=== PATIENT | male | born 1960 | race Caucasian/White ===

== ENCOUNTER → 2017-07-31 07:53 | Outpatient (CLI) | payer OTHER, MEDICAID, SELFPAY ==
[2017-07-31 08:47] LABS: Magnesium 2.1 mg/dL (1.6-2.3)
[2017-07-31 08:50] LABS: High Sensitivity CRP - Cardiac 0.3 mg/L (1.0-3.0)
[2017-07-31 08:54] LABS: Erythrocyte Sedimentation Rate 1 MM/HR (0-15)
[2017-07-31 09:36] LABS: Vitamin B12 387 pg/mL (239-931)
[2017-08-03 11:06] LABS: Vitamin B6 47.9 ng/mL (2.1-21.7)
[2017-08-03 22:02] LABS: ANA Screen POSITIVE (Negative); DNA Antibody Crithidia IFA NEGATIVE (Negative); Rheumatoid Factor <14 IU/mL; Sjogren Antiboday SS-A <1.0 NEG AI (<1.0 NEGATIVE); Sjogren Antiboday SS-B <1.0 NEG AI (<1.0 NEGATIVE); Sm Antibody <1.0 NEG AI (<1.0 NEGATIVE); Sm/RNP Antibody <1.0 NEG AI (<1.0 NEGATIVE)
== END ==
PROVIDERS: Family Provider Physician Assistant; PCP Physician Assistant; Visit Provider Physician Assistant
DX: R20.2 Paresthesia of skin (principal); M79.601 Pain in right arm; M79.602 Pain in left arm; I25.10 Atherosclerotic heart disease of native coronary artery without angina pectoris
CPT/HCPCS: 36415; 82607; 83735; 84207; 85651; 86038; 86140; 86430

== ENCOUNTER → 2018-08-01 11:50 | Outpatient (CLI) | payer OTHER, MEDICAID, SELFPAY ==
[2018-08-01 12:29] LABS: Alanine Aminotransferase 17 IU/L (21-72); Albumin 4.6 g/dL (3.5-5.0); Albumin Globulin Ratio 1.6 (1.0-2.8); Alkaline Phosphatase 41 U/L (38-126); Aspartate Aminotransferase 32 IU/L (17-59); Bilirubin Total 1.4 mg/dL (0.2-1.3); Blood Urea Nitrogen 27 mg/dL (9-20); Carbon Dioxide 31 mmol/L (22-32); Chloride 101 mmol/L (98-107); Cholesterol 191 mg/dL (140-199); Estimated Glomerular Filt Rate > 60.0 mL/min (>60); Globulin 2.9 g/dL (1.7-4.1); Glucose 98 mg/dL (70-100); HDL Cholesterol 86 mg/dL (40-60); HEMOLYSIS < 15 (0-50); LDL Cholesterol Calculated 52 mg/dL (<100); Potassium 4.9 mmol/L (3.4-5.1); Sodium 140 mmol/L (137-145); Total Protein 7.5 g/dL (6.3-8.2); Triglycerides 265 mg/dL (35-150)
[2018-08-01 12:59] LABS: Prostate Specific Antigen Scrn 0.978 ng/mL (0.1-4.0)
[2018-08-01 15:30] LABS: Vitamin D 25 Hydroxy (D3) 30.8 ng/mL (30.0-100.0)
== END ==
PROVIDERS: PCP Student in an Organized Health Care Education/Training Program; Visit Provider Student in an Organized Health Care Education/Training Program
DX: E55.9 Vitamin D deficiency, unspecified (principal); I10 Essential (primary) hypertension; E78.5 Hyperlipidemia, unspecified; Z79.899 Other long term (current) drug therapy; Z12.5 Encounter for screening for malignant neoplasm of prostate
CPT/HCPCS: 36415; 80053; 80061; 82306; G0103

== ENCOUNTER → 2019-11-13 14:28 | Outpatient (CLI) | payer OTHER, MEDICAID, SELFPAY ==
[2019-11-13 15:47] LABS: HEMOLYSIS < 15 (0-50)
[2019-11-13 16:01] LABS: BUN Creatinine Ratio 17.4 (6-22); Blood Urea Nitrogen 23 mg/dL (9-20); Calcium 9.9 mg/dL (8.4-10.2); Carbon Dioxide 30 mmol/L (22-32); Chloride 98 mmol/L (98-107); Estimated Glomerular Filt Rate 55.7 mL/min (>60); Glucose 99 mg/dL (70-100); Potassium 4.8 mmol/L (3.4-5.1); Sodium 137 mmol/L (137-145)
== END ==
PROVIDERS: PCP Student in an Organized Health Care Education/Training Program; Referring Provider Student in an Organized Health Care Education/Training Program; Visit Provider Student in an Organized Health Care Education/Training Program
DX: I10 Essential (primary) hypertension (principal)
CPT/HCPCS: 36415; 80048; 84153

== ENCOUNTER → 2019-12-04 10:49 | Outpatient (CLI) | payer OTHER, MEDICAID, SELFPAY ==
[2019-12-04 12:02] LABS: BUN Creatinine Ratio 18.2 (6-22); Blood Urea Nitrogen 20 mg/dL (9-20); Estimated Glomerular Filt Rate > 60.0 mL/min (>60)
== END ==
PROVIDERS: PCP Student in an Organized Health Care Education/Training Program; Referring Provider Student in an Organized Health Care Education/Training Program; Visit Provider Student in an Organized Health Care Education/Training Program
DX: N17.9 Acute kidney failure, unspecified (principal)
CPT/HCPCS: 36415; 82565; 84520

== ENCOUNTER → 2020-03-22 09:44 | Outpatient (CLI) | payer OTHER, MEDICAID, SELFPAY ==
[2020-03-22 11:55] LABS: COVID19 -Nasal RAPID Negative (Negative)
== END ==
PROVIDERS: PCP Student in an Organized Health Care Education/Training Program; Visit Provider Specialist
DX: Z20.822 Contact with and (suspected) exposure to COVID-19 (principal)
CPT/HCPCS: 87635; C9803

== ENCOUNTER 2020-03-23 08:30 | Day surgery (SDC) | payer OTHER, MEDICAID, SELFPAY ==
--- NOTE | 2020-03-23 | PATH_ITS ---
[facility] Accession Number: [id number] . 01 Material submitted: . PART A: colon - ASCENDING COLON PART B: colon - TRANSVERSE COLON PART C: colon - COLON POLYP BIOPSY AT 55CM PART D: colon - COLON POLYP BIOPSY AT 15CM . 02 Diagnosis: A. Ascending Colon, Biopsy: Tubular adenoma. . B. Transverse Colon, Biopsy: Fragments of tubular adenoma. . C. Colon Polyp at 55 cm, Biopsy: Hyperplastic polyp. . D. Colon Polyp at 15 cm, Biopsy: Tubular adenoma. [facility] 03/25/2020 1623 Local . 02 Electronically signed: . Marc Clark MD, PhD, Pathologist NPI- [id number] . 01 Gross description: . A. The specimen is received in formalin, labeled ascending colon and consists of four mosqueda-pink fragments of soft tissue measuring 0.8 x 0.6 x 0.2 cm in aggregate. The specimen is entirely submitted in cassette A1. B. The specimen is received in formalin, labeled transverse colon and consists of multiple mosqueda-pink fragments of soft tissue measuring 1.2 x 1.0 x 0.3 cm in aggregate. The specimen is entirely submitted in cassette B1. C. The specimen is received in formalin, labeled colon polyps at 55 cm and consists of two mosqueda-pink fragments of soft tissue measuring 0.5 x 0.4 x 0.3 cm in aggregate. The specimen is entirely submitted in cassette C1. D. The specimen is received in formalin, labeled colon polyp at 15 cm and consists of three mosqueda-pink fragments of soft tissue measuring 0.7 x 0.6 x 0.3 cm in aggregate. The specimen is entirely submitted in cassette D1. ([id number]) /MRV 03/24/2020 1237 Local . 02 Pathologist provided ICD-10: D12.2, D12.3, D12.6 . 02 CPT . 162544, 524533, 309956, [id number] Performed at: 01 [facility] [address] [id number] MD Timothy Carter MD Phone: [phone] Performed at: 02 [facility] [address] [place] [id number] MD Doreen Morton MD Phone: [phone]
[2020-03-23] MEDS: LACTATED RINGERS 1,000 ML 200 ML IV (08:47)
[2020-03-23 08:55] VITALS: BP 145/97; PULSE 100; RESP 20; TEMP 36.2; O2SAT 97; BMI 23.3
--- NOTE | 2020-03-23 10:13 | PM.HP.1 ---
History of Present Illness History of Present Illness Date Patient Seen: 03/23/20 Time Patient Seen: 10:00 Chief complaint: SDC Narrative: The patient is here for screening colonoscopy. This is his 1st exam. No family history of colon cancer. Patient History Medical History (Updated 03/23/20 @ 10:14 by Aries Owens MD) Coronary artery disease (~03/2015) Coronary artery disease Essential hypertension Fractures (Unknown) Hyperlipidemia (~03/2015) Hyperlipidemia Hypertension (~03/2015) Knee pain, right (~2017) Skin cancer Unstable angina (~03/2015) Vitamin D deficiency (~2015) Surgical History History of coronary artery stent placement (~03/2015) Family & Social History Family History Father No problems noted. Mother No problems noted. Social History: household members spouse Tobacco & Substance use: Smoking Status Never smoker alcohol intake current alcohol intake frequency 0-2 drinks per day Substance Use Type does not use Meds Home Medications and Allergies Home Medications Medication Instructions Recorded Confirmed Type aspirin 81 mg chewable tablet 81 mg PO DAILY 07/10/18 03/23/20 History atorvastatin 80 mg tablet 80 mg PO HS #90 tab 11/12/19 03/23/20 Rx lisinopril 20 1 tab PO DAILY #90 tab 12/10/19 03/23/20 Rx mg-hydrochlorothiazide 12.5 mg tablet Allergies Allergy/AdvReac Type Severity Reaction Status Date / Time No Known Drug Allergies Allergy Verified 03/23/20 08:47 Review of Systems Review of Systems Narrative: No symptoms related to his heart since his stents were placed. ROS: Yes All systems reviewed with the patient and are negative except as otherwise documented Exam Vital Signs (past 8 hours): - 03/23/20 08:55 Temperature 97.1 F L Pulse Rate 100 H Respiratory Rate 20 Blood Pressure 145/97 H Pulse Oximetry 97 Oxygen Delivery Method Room Air Narrative Exam Narrative: Pleasant cooperative patient no apparent distress. Lungs are clear to auscultation. No rales or rhonchi. Heart regular rate and rhythm no murmur gallop. Abdomen is soft nontender without mass. No obvious hernias. Patient is alert and oriented x3. Assessment & Plan Assessment & Plan narrative: The patient for a screening colonoscopy. I have discussed the procedure with them. Risks of bleeding, perforation which would necessitate major operation, failure to find remove all lesions, the potential tattoo were all discussed. All questions were answered. They wished to proceed.
--- NOTE | 2020-03-23 10:15 | PM.PREOP ---
Pre-operative Note COVID-19 COVID-19 status: Negative Result date/Date tested (Pos, Neg/Pending): 03/22/20 Interval Note History & Physical reviewed/Exam performed by Physician: Yes Changes to H&P: No ASA Class (for procedural sedation): II
[2020-03-23] MEDS: fentaNYL 250 MCG/5 ML INJ IV (10:19)
[2020-03-23] MEDS: MIDAZOLAM 5 MG/5 ML VIAL IV (10:19)
--- NOTE | 2020-03-23 10:52 | PM.OP.ENDO ---
Operative Date/Time/Diagnoses Date of procedure: 03/23/20 Time of procedure: 10:52 Pre-op diagnosis: Screening colonoscopy. Patient is 60. This is his 1st exam. Post-op diagnosis: same (Multiple small polyps. Internal hemorrhoids.) Procedure & Clinicians Study performed: Colonoscopy with cold biopsy Same procedure as scheduled: Yes Indications: Screening Surgeon: Aries Owens Procedure Notes SCOAP/Timeout: Performed Procedure in detail: The patient was placed in the left lateral decubitus position and underwent IV sedation directed by the surgeon consisting of fentanyl and Versed. Digital exam was unremarkable. That portion of his prostate I could feel was normal in size and without mass.. The scope was inserted and advanced through the rectum into the sigmoid, descending, transverse, and ascending colon. No lesions were seen on the way in.. The cecum was reached identified by the ileocecal valve and the appendiceal opening. The ileocecal valve was briefly cannulated. The terminal ileum was normal in appearance. The scope was gradually brought out. Polyps were found at the ascending colon, transverse colon, 55 cm and 15 cm from the anal verge. All appeared to be removed. All were under a cm. . The scope ultimately was retroflexed in the rectum. The appearance was remarkable for internal hemorrhoids without ulceration.. The scope was removed and the patient tolerated the procedure well. The prep was very good. Scope withdrawal time: 7 minutes(14 total) Sedation minutes: 29 Findings: internal hemorrhoids and polyp (Multiple. All small.) Specimen(s): other (Polyps) Complications: none Post-procedure Recommendations: Colonscopy in 5 years Follow up: as needed Disposition: PACU
[2020-03-23 10:54] VITALS: BP 125/83; PULSE 90; RESP 22; TEMP 36.9; O2SAT 96
[2020-03-23 10:58] VITALS: BP 130/96; PULSE 90; RESP 18; O2SAT 96
[2020-03-23 11:03] VITALS: BP 118/92; PULSE 85; RESP 16; O2SAT 96
[2020-03-23 11:08] VITALS: BP 131/89; PULSE 79; RESP 22; TEMP 36.6; O2SAT 96
[2020-03-23 11:14] VITALS: BP 138/90; PULSE 81; RESP 16; TEMP 36.9; O2SAT 97
== END 2020-03-23 11:29 | disposition home or self-care (01) ==
PROVIDERS: PCP Student in an Organized Health Care Education/Training Program; Referring Provider Specialist; Visit Provider Specialist
PROC: 0DJD8ZZ Inspection of Lower Intestinal Tract, Via Natural or Artificial Opening Endoscopic (ICD-10-PCS; CPT 45378; principal; 2020-03-23 09:30)
DX: Z12.11 Encounter for screening for malignant neoplasm of colon (principal); I25.10 Atherosclerotic heart disease of native coronary artery without angina pectoris; I10 Essential (primary) hypertension; E78.5 Hyperlipidemia, unspecified; K64.8 Other hemorrhoids; D12.2 Benign neoplasm of ascending colon; D12.3 Benign neoplasm of transverse colon; D12.6 Benign neoplasm of colon, unspecified
CPT/HCPCS: 45380; 99152; 99153; J2250; J3010

== ENCOUNTER → 2020-04-15 11:50 | Outpatient (CLI) | payer OTHER, MEDICAID, SELFPAY ==
[2020-04-15 13:26] LABS: BUN Creatinine Ratio 16.4 (6-22); Blood Urea Nitrogen 18 mg/dL (9-20); Calcium 9.9 mg/dL (8.4-10.2); Carbon Dioxide 36 mmol/L (22-32); Chloride 99 mmol/L (98-107); Estimated Glomerular Filt Rate > 60.0 mL/min (>60); Glucose 99 mg/dL (70-100); HEMOLYSIS < 15 (0-50); Potassium 4.2 mmol/L (3.4-5.1); Sodium 138 mmol/L (137-145)
[2020-04-15 13:46] LABS: TSH w/ Reflex to FT4 1.85 uIU/mL (0.47-4.68)
[2020-04-15 13:53] LABS: Prostate Specific Antigen Scrn 0.987 ng/mL (0.1-4.0)
[2020-04-15 14:12] LABS: Vitamin B12 344 pg/mL (239-931)
== END ==
PROVIDERS: PCP Student in an Organized Health Care Education/Training Program; Referring Provider Student in an Organized Health Care Education/Training Program; Visit Provider Student in an Organized Health Care Education/Training Program
DX: Z12.5 Encounter for screening for malignant neoplasm of prostate (principal); G62.9 Polyneuropathy, unspecified; R42 Dizziness and giddiness; I10 Essential (primary) hypertension
CPT/HCPCS: 36415; 80048; 82607; 84443; G0103

== ENCOUNTER 2020-04-28 10:36 | Outpatient (RCR) | payer OTHER, MEDICAID, SELFPAY ==
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
--- NOTE | 2020-04-28 11:29 | PT.OPPOC ---
Physical, Occupational & Speech Therapy At [facility] Current Diagnoses Benign paroxysmal vertigo, unspecified ear (04/28/20) Visit Care Team Role Provider Type Geovany Masters MD Attending Provider Physician Primary Care Provider Referring Provider Specialty: Internal Medicine Address: [address] [place] [address], [address], [address] Email: [email or web address] Plan Of Care PT-OP-T Assessment and Plan Start: 04/28/20 07:38 Freq: Status: Active Protocol: Document 04/28/20 11:00 AMB (Rec: 05/05/20 11:18 AMB [email or web address]) Physical Therapy Assessment Rehab Potential Rehabilitation Potential Fair Evaluation Complexity Number of Personal Factors/Comorbidities 1-2 Number of Body Systems Impaired 1-2 Clinical Presentation at Evaluation Evolving Impairments Impairments Balance,Functional Activities Goals One Impairment Dysequilibrium Short Term Goal (STG) Shemar will be able to work on ladders without the feeling of losing his balance backwards. STG Duration 8 weeks Assessment Summary Assessment Shemar attended physical therapy with the hope that we would be able to cure his dysequilibrium in just a few minutes. Unfortunately all testing for BPPV was negative, and he specifically denies spinning dizziness. From the testing we would want to work more on cervicogenic dizziness vs post-concussive dizziness. Unfortunately both of these diagnoses would take multiple appointments to make significant change. The patient is quite busy and does not want to commit to coming to physical therapy on a regular basis, so encouraged him to discuss his dysequilibrium with his chiropractor who is already working on his neck. We will keep his case open here for a month if he decides he would like to return to physical therapy, but after that time we will close his case, and he would be welcome to return at a time when he can come to PT on a regular basis. Physical Therapy Plan Frequency and Duration Frequency of Treatment 1x/Week Duration of Treatment 8 weeks Plan of Care Start Date 04/28/20 Plan of Care End Date 06/23/20 Therapeutic Interventions Therapeutic Interventions Balance Training,Home Exercise Program,Manual Therapy, Neuromuscular Re-education, Self-Care/Home Management, Therapeutic Activities, Therapeutic Exercises, Vestibular Rehabilitation Modalities Traction- Mechanical Next Visit Focus/Plan Next Visit Plan Pt on hold since he doesn't want to schedule more at this time, will hold his account open for a month, then discharge if he does not want to schedule within that time frame. Plan of Care Dates Plan of Care Start Date 04/28/20 Plan of Care End Date 06/23/20 Electronically Signed by: Mindy Hamm, PT 05/05/20 6080 Please Sign and Return: I have reviewed this Plan of Care and certify that the skilled therapy services above are required to meet the patient?s needs. Physician Signature Date Printed Name and Credentials Clinical Instructor Signature Printed Name and Credentials
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
== END 2020-07-02 09:38 | disposition home or self-care (01) ==
LOC: PHYS 10:36
PROVIDERS: PCP Student in an Organized Health Care Education/Training Program; Referring Provider Student in an Organized Health Care Education/Training Program; Visit Provider Student in an Organized Health Care Education/Training Program
DX: H81.10 Benign paroxysmal vertigo, unspecified ear (principal)
CPT/HCPCS: 97161

== ENCOUNTER → 2020-12-14 12:03 | Outpatient (CLI) | payer OTHER, MEDICAID, SELFPAY ==
--- NOTE | 2020-12-14 12:05 | DI.RAD.S_ITS ---
PROCEDURE: XR CERVICAL SPINE 2V OR 3V INDICATIONS: Acute on chronic neck injury TECHNIQUE: 3 view(s) of the cervical spine were acquired. COMPARISON: None. FINDINGS: Bones: No fractures or dislocations to the T1 level. The lateral masses of C1 appear intact on the odontoid view. No suspicious bony lesions. Disc space narrowing and facet sclerosis noted in the mid cervical spine. Grade 1 anterior spondylolisthesis at C2-3 present. Soft tissues: No prevertebral soft tissue swelling. IMPRESSION: Degenerative disc disease and arthropathy in the mid cervical spine associated with grade 1 anterior spondylolisthesis C2-3. Approved by: Addy Alvarado M.D. on 12/14/2020 at 14:19
--- NOTE | 2020-12-14 12:05 | DI.RAD.S_ITS ---
PROCEDURE: XR SHOULDER LT MIN 2V INDICATIONS: Left shoulder injury TECHNIQUE: 3 views of the shoulder were acquired. COMPARISON: None. FINDINGS: Bones: No fractures or dislocations. No suspicious bony lesions. Visualized ribs appear intact. Soft tissues: No suspicious soft tissue calcifications. IMPRESSION: Unremarkable left shoulder radiographs Approved by: Addy Alvarado M.D. on 12/14/2020 at 14:20
== END ==
PROVIDERS: PCP Student in an Organized Health Care Education/Training Program; Referring Provider Student in an Organized Health Care Education/Training Program; Visit Provider Student in an Organized Health Care Education/Training Program
DX: S49.92XA Unspecified injury of left shoulder and upper arm, initial encounter (principal); M50.30 Other cervical disc degeneration, unspecified cervical region; M47.812 Spondylosis without myelopathy or radiculopathy, cervical region; M43.12 Spondylolisthesis, cervical region; X58.XXXA Exposure to other specified factors, initial encounter
CPT/HCPCS: 72040; 73030

== ENCOUNTER 2021-10-10 08:15 | Outpatient (RCR) | payer OTHER, MEDICAID, SELFPAY ==
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
--- NOTE | 2021-09-09 21:11 | PT.OPPOC ---
Physical, Occupational & Speech Therapy At [facility] Current Diagnoses Cervicalgia (09/09/21) Visit Care Team Role Provider Type Geovany Masters MD Attending Provider Physician Family Provider Primary Care Provider Referring Provider Specialty: Internal Medicine Address: [address] [place] [address], [facility] [address], [place], [address] Email: [email or web address] Plan Of Care PT-OP-T Assessment and Plan Start: 09/08/21 20:03 Freq: Status: Active Protocol: Document 09/09/21 08:15 AMB (Rec: 09/11/21 21:09 AMB [id number]) Physical Therapy Assessment Rehab Potential Rehabilitation Potential Good Evaluation Complexity Number of Personal Factors/Comorbidities 0 Number of Body Systems Impaired 4 or More Clinical Presentation at Evaluation Stable Impairments Impairments Activity Tolerance,Functional Activities,Posture,ROM,Soft Tissue Mobility Goals Three Impairment Lifting Short Term Goal (STG) Shemar will lift 20 pounds with good body mechanics from the floor to waist height without an increase in his baseline pain. STG Duration 4 weeks Plisse Machine Operator Goal (LTG) Shemar will lift 30 pounds to shoulder height without an increase in pain. LTG Duration 8 weeks Two Impairment Pain Short Term Goal (STG) Shemar will decrease his pain to 6/10 or less at baseline. STG Duration 4 weeks Plisse Machine Operator Goal (LTG) Shemar will work at a desk for one hour with pain of 5/10 or less. LTG Duration 8 weeks One Impairment ROM Short Term Goal (STG) Shemar will improve his right rotation to 60 degrees or more . STG Duration 4 weeks Assessment Summary Assessment Shemar attends physical therapy with acute exacerbation of chronic neck pain that has significantly worsened to the point it is now very difficult for him to work. His medical record does indicate L shoulder pain and possible L carpal tunnel syndrome, but he specifically denies radiating symptoms at this time. His pain is in the posterior cervical spine, and he does have known Gr 1 spondylolisthesis. He did have decreased right cervical rotation and significant forward head posture, but fortunately his strength was WNL. He will benefit from physical therapy to help him manage his pain symptoms so that he can return to work/ activity with less pain. Physical Therapy Plan Frequency and Duration Frequency of Treatment 2x/Week Duration of Treatment 8 weeks Plan of Care Start Date 09/09/21 Plan of Care End Date 11/10/21 Therapeutic Interventions Therapeutic Interventions Home Exercise Program,Joint Mobilizations,Manual Therapy, Neuromuscular Re-education, Self-Care/Home Management, Therapeutic Activities, Therapeutic Exercises Modalities Cold Pack/Ice Massage,Electric Stimulation,Hot Packs, Traction- Mechanical Next Visit Focus/Plan Next Note Type Treatment Note Next Visit Plan review vish quiroz, tanner consider traction, TENS, reduce muscle spasm, educate in body mechanics/posture Plan of Care Dates Plan of Care Start Date 09/09/21 Plan of Care End Date 11/10/21 Electronically Signed by: Mindy Hamm, PT 09/11/21 [id number] If you are in agreement with this Plan of Care, please return a signed and dated copy. I have reviewed this Plan of Care and certify that the skilled therapy services above are required to meet the patient?s needs. Physician Signature Date Printed Name and Credentials Clinical Instructor Signature Printed Name and Credentials
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
== END 2022-02-15 13:43 | disposition home or self-care (01) ==
LOC: PHYS 08:15
PROVIDERS: Family Provider Student in an Organized Health Care Education/Training Program; PCP Student in an Organized Health Care Education/Training Program; Referring Provider Student in an Organized Health Care Education/Training Program; Visit Provider Student in an Organized Health Care Education/Training Program
DX: M54.2 Cervicalgia (principal)
CPT/HCPCS: 97110; 97140; 97161; 97530; 97535

== ENCOUNTER → 2021-11-22 08:39 | Outpatient (CLI) | payer OTHER, MEDICAID, SELFPAY ==
--- NOTE | 2021-11-22 08:39 | DI.MRI.S_ITS ---
PROCEDURE: MR CERVICAL SPINE WO CON INDICATIONS: Cervical radiculopathy TECHNIQUE: Noncontrast sagittal T1 spin echo and T2 fast spin echo, sagittal STIR, foraminal oblique sagittal T2 fast spin echo, and axial gradient echo or T2 fast spin echo through the cervical spine. COMPARISON: None. FINDINGS: Degenerative anterolisthesis of C7 on T1 measuring 3 mm. No significant listhesis otherwise. There is straightening of the usual cervical lordosis from C2 through C5. Vertebral body heights maintained. No suspicious focal marrow signal abnormality. Modic type 1 and 3 degenerative endplate change from C3-C4 through C6-C7. Normal morphology and signal intensity of the cervical cord. There is no syrinx. Regional prevertebral and paraspinous soft tissues demonstrate acute finding. C2-C3: No spinal canal stenosis. Severe left and mild right neural foraminal narrowing. C3-C4: Mild spinal canal stenosis due to posterior disc-osteophyte complex. Moderate bilateral neural foraminal stenosis due to facet and uncovertebral hypertrophy. C4-C5: Mild spinal canal stenosis due to posterior disc osteophyte complex. Severe neural foraminal narrowing bilaterally due to facet and uncovertebral hypertrophy. C5-C6: No spinal canal stenosis. Moderate bilateral neural foraminal narrowing due to facet and uncovertebral hypertrophy. C6-C7: No spinal canal stenosis. Moderate bilateral neural foraminal narrowing to facet and uncovertebral hypertrophy. C7-T1: No spinal canal or neural foraminal stenosis. IMPRESSION: Varying degrees of neural foraminal narrowing up to severe as detailed above. Mild spinal canal stenosis fro at C3-C4 and C4-C5. Dictated by: Reinier Garland M.D. on 11/23/2021 at 10:45 Approved by: Reinier Garland M.D. on 11/23/2021 at 10:51
== END ==
PROVIDERS: Family Provider Student in an Organized Health Care Education/Training Program; PCP Student in an Organized Health Care Education/Training Program; Referring Provider Student in an Organized Health Care Education/Training Program; Visit Provider Student in an Organized Health Care Education/Training Program
DX: M54.12 Radiculopathy, cervical region (principal); M54.2 Cervicalgia; M48.02 Spinal stenosis, cervical region
CPT/HCPCS: 72141

== ENCOUNTER → 2021-11-25 09:47 | Outpatient (CLI) | payer OTHER, MEDICAID, SELFPAY ==
[2021-11-25 12:14] LABS: BUN Creatinine Ratio 19.5 (6-22); Blood Urea Nitrogen 24 mg/dL (9-20); Calcium 9.2 mg/dL (8.4-10.2); Carbon Dioxide 30 mmol/L (22-32); Chloride 98 mmol/L (98-107); Estimated Glomerular Filt Rate > 60 mL/min (>60); Glucose 100 mg/dL (80-110); HEMOLYSIS < 15 (0-50); Potassium 4.1 mmol/L (3.4-5.1); Sodium 137 mmol/L (137-145)
== END ==
PROVIDERS: Family Provider Student in an Organized Health Care Education/Training Program; PCP Student in an Organized Health Care Education/Training Program; Referring Provider Student in an Organized Health Care Education/Training Program; Visit Provider Student in an Organized Health Care Education/Training Program
DX: I10 Essential (primary) hypertension (principal)
CPT/HCPCS: 36415; 80048

== ENCOUNTER 2022-05-25 08:38 | Day surgery (SDC) | payer OTHER, MEDICAID, SELFPAY ==
[2022-05-25 08:50] VITALS: BMI 23.0
[2022-05-25 08:55] VITALS: BP 136/91; PULSE 79; RESP 16; TEMP 36.3; O2SAT 96
[2022-05-25] MEDS: LACTATED RINGERS 1,000 ML 42 ML IV (09:04)
--- NOTE | 2022-05-25 10:42 | PM.HP.1 ---
History of Present Illness History of Present Illness Date Patient Seen: 05/25/22 Time Patient Seen: 10:42 Chief complaint: SDC Narrative: Shemar is here for his colonoscopy. Please see the office note from March for details. [facility] Medical History Coronary artery disease (~03/2015) Coronary artery disease Essential hypertension Fractures (Unknown) Hyperlipidemia (~03/2015) Hyperlipidemia Hypertension (~03/2015) Knee pain, right (~2017) Skin cancer Unstable angina (~03/2015) Vitamin D deficiency (~2015) Surgical History History of coronary artery stent placement (~03/2015) Family History Father No problems noted. Mother No problems noted. Social History household members: spouse Smoking Status: Never smoker alcohol intake: current Meds Home Medications and Allergies Home Medications Medication Instructions Recorded Confirmed Type lisinopril 20 2 tab PO DAILY #180 tabs 10/06/21 05/25/22 Rx mg-hydrochlorothiazide 12.5 mg tablet atorvastatin 80 mg tablet (Lipitor) 80 mg PO HS #90 tabs 11/16/21 05/25/22 Rx gabapentin 300 mg capsule 300 mg PO TID 05/25/22 History Allergies Allergy/AdvReac Type Severity Reaction Status Date / Time No Known Drug Allergies Allergy Verified 05/25/22 08:49 Exam Vital Signs (past 8 hours): - 05/25/22 08:55 Temperature 97.4 F L Pulse Rate 79 Respiratory Rate 16 Blood Pressure 136/91 H Pulse Oximetry 96 Oxygen Delivery Method Room Air Oxygen Delivery Method Room Air Const General: healthy appearing Assessment & Plan Assessment and plan (1) History of colon polyps: Status: Acute (2) Internal hemorrhoids: Status: Acute Plan We will proceed with a colonoscopy with hemorrhoid banding at the end. He understands the risks and benefits and wishes to proceed.
--- NOTE | 2022-05-25 11:24 | PM.OP.COLON ---
Operative Date/Time/Diagnoses Date of procedure: 05/25/22 Time of procedure: 11:24 Pre-op diagnosis: Colon cancer screening Post-op diagnosis: same Procedure & Clinicians Study performed: Colonoscopy Same procedure as scheduled: Yes Surgeon: Shalom Esqudea Procedure Notes Procedure in detail: Surgeon: Shalom Esqueda MD Anesthesia: Geovany Harris CRNA Procedure: The patient was brought to the endoscopy suite, placed in left lateral decubitus position. The patient was connected to monitoring devices. A time-out was performed. Sedation was administered. Once the patient was adequately sedated, a digital rectal exam was performed and was normal. The scope was then inserted and advanced to the cecum where the appendiceal orifice was identified and photographed. The scope was then slowly withdrawn over greater than 6 minutes. The mucosa was thoroughly inspected. No polyps were seen. The scope was retroflexed in the rectum. Moderate internal hemorrhoids were seen. The scope was straightened and removed. Rubber-band ligation was performed the left lateral, right anterior and right posterior hemorrhoidal columns. The patient was awakened and brought to recovery. Scope withdrawal time: 8 minutes Sedation time: 18 minutes EBL: 2 mL Findings: Internal hemorrhoids Post-procedure Recommendations: Colonoscopy in 10 years Disposition: PACU
[2022-05-25 11:28] VITALS: BP 109/78; PULSE 76; RESP 18; TEMP 36.2; O2SAT 97
[2022-05-25 11:33] VITALS: BP 123/78; PULSE 69; RESP 14; O2SAT 99
[2022-05-25 11:37] VITALS: BP 136/88; PULSE 65; RESP 16; TEMP 36.6; O2SAT 99
[2022-05-25 11:45] VITALS: BP 138/91; PULSE 65; RESP 16; TEMP 36.7; O2SAT 99
== END 2022-05-25 11:49 | disposition home or self-care (01) ==
PROVIDERS: Family Provider Student in an Organized Health Care Education/Training Program; PCP Student in an Organized Health Care Education/Training Program; Referring Provider Surgery; Visit Provider Surgery
PROC: 0DJD8ZZ Inspection of Lower Intestinal Tract, Via Natural or Artificial Opening Endoscopic (ICD-10-PCS; CPT 45378; principal; 2022-05-25 09:45)
DX: Z12.11 Encounter for screening for malignant neoplasm of colon (principal); Z86.010 Personal history of colon polyps; K64.8 Other hemorrhoids
CPT/HCPCS: 46221; 45378; J2704

== ENCOUNTER → 2022-12-08 09:02 | Outpatient (CLI) | payer OTHER, MEDICAID, SELFPAY ==
[2022-12-08 11:02] LABS: Add Manual Diff / Slide Review NO; Basophils Absolute Auto 100 /uL (0-100); Basophils Percent Auto 1.4 % (0-2); Eosinophils Absolute Auto 200 /uL (0-450); Hematocrit 42.1 % (41-53); Hemoglobin 14.3 g/dL (13.5-17.5); Lymphocytes Absolute Auto 1500 /uL (1100-4500); Lymphocytes Percent Auto 24.5 % (25-40); Mean Corpuscular HGB Conc 33.9 % (30-36); Mean Corpuscular Hemoglobin 30.8 PG (26-34); Monocytes Absolute Auto 700 /uL (0-900); Monocytes Percent Auto 11.8 % (3-14); Neutrophils Absolute Auto 3600 /uL (1500-7000); Neutrophils Percent Auto 59.3 % (50-75); Platelet Count 232 X10^3/uL (150-400); Red Blood Cell Count 4.62 X10^6/uL (4.5-5.9); Red Cell Distribution Width 14.5 % (11.6-14.8); White Blood Cell Count 6.1 X10^3/uL (4.5-11.0)
[2022-12-08 11:22] LABS: HEMOLYSIS < 15 (0-50)
[2022-12-08 11:31] LABS: Alanine Aminotransferase 32 IU/L (<50); Albumin 4.5 g/dL (3.5-5.0); Albumin Globulin Ratio 1.5 (1.0-2.8); Alkaline Phosphatase 59 U/L (38-126); Aspartate Aminotransferase 40 IU/L (17-59); BUN Creatinine Ratio 18.2 (6-22); Bilirubin Total 0.8 mg/dL (0.2-1.3); Blood Urea Nitrogen 22 mg/dL (9-20); Calcium 9.6 mg/dL (8.4-10.2); Carbon Dioxide 28 mmol/L (22-32); Chloride 99 mmol/L (98-107); Cholesterol 211 mg/dL (140-199); Estimated Glomerular Filt Rate > 60 mL/min (>60); Globulin 3.1 g/dL (1.7-4.1); Glucose 96 mg/dL (80-110); HDL Cholesterol 67 mg/dL (40-60); LDL Cholesterol Calculated 76 mg/dL (<100); Sodium 135 mmol/L (137-145); Total Protein 7.6 g/dL (6.3-8.2); Triglycerides 342 mg/dL (35-150)
[2022-12-08 16:12] LABS: Hemoglobin A1C% w Est Avg Glu 6.1 % (4.0-6.0)
[2022-12-12 16:21] LABS: Prostate Specific Antigen 0.855 ng/mL (0.10-4.00)
== END ==
PROVIDERS: Family Provider Student in an Organized Health Care Education/Training Program; PCP Family Medicine; Referring Provider Family Medicine; Visit Provider Family Medicine
DX: E78.5 Hyperlipidemia, unspecified (principal); I10 Essential (primary) hypertension; I25.10 Atherosclerotic heart disease of native coronary artery without angina pectoris; R73.03 Prediabetes; Z12.5 Encounter for screening for malignant neoplasm of prostate
CPT/HCPCS: 36415; 80053; 80061; 83036; 84153; 85025

== ENCOUNTER → 2023-02-05 10:00 | Outpatient (CLI) | payer OTHER, MEDICAID, SELFPAY ==
--- NOTE | 2023-02-05 | DI.RAD.S_ITS ---
PROCEDURE: XR THORACIC SPINE 3V INDICATIONS: DORSALGIA TECHNIQUE: 3 views of the thoracic spine were acquired. COMPARISON: None. FINDINGS: Bones: No fractures or dislocations. No suspicious bony lesions. 12 pairs of ribs are noted, and appear intact where visualized. Soft tissues: No paravertebral stripe thickening. There is likely splenic artery calcification which is partially characterized on this limited view. IMPRESSION: No acute bony abnormality. Dictated by: Shelley Espinoza M.D. on 02/05/2023 at 12:19 Approved by: Shelley Espinoza M.D. on 02/05/2023 at 12:26
--- NOTE | 2023-02-05 10:03 | DI.RAD.S_ITS ---
PROCEDURE: XR CERVICAL SPINE 4V OR 5V INDICATIONS: Neck pain TECHNIQUE: 5 views of the cervical spine acquired. COMPARISON: [facility], CR, XR CERVICAL SPINE 2V OR 3V, 12/14/2020, 12:10. FINDINGS: Bones: Trace anterolisthesis at C2-3 and trace retrolisthesis at C3-4 and C4-5 are unchanged when compared with the study dated December 14, 2020. As before there is marked intervertebral disc space narrowing, endplate sclerosis and osteophytosis from C3-C5. On the left there is moderate to severe neural foraminal stenosis from C2-T1. On the right there is moderate foraminal stenosis from C3-C5 and mild foraminal stenosis from C5-T1. Soft tissues: No prevertebral soft tissue swelling. IMPRESSION: 1. Spondylolisthesis and degenerative changes stable when compared with the study from December 14, 2020. 2. Bilateral foraminal stenosis as above. Dictated by: Shelley Espinoza M.D. on 02/05/2023 at 12:26 Approved by: Shelley Espinoza M.D. on 02/05/2023 at 12:28
== END ==
PROVIDERS: Family Provider Student in an Organized Health Care Education/Training Program; PCP Family Medicine; Referring Provider Anesthesiology; Visit Provider Anesthesiology
DX: M47.22 Other spondylosis with radiculopathy, cervical region (principal); M48.02 Spinal stenosis, cervical region; M54.2 Cervicalgia; M54.9 Dorsalgia, unspecified; M79.18 Myalgia, other site; M54.6 Pain in thoracic spine; G89.29 Other chronic pain
CPT/HCPCS: 72050; 72072; 99214

== ENCOUNTER 2023-02-28 09:20 | Outpatient (CLI) | payer OTHER, MEDICAID, SELFPAY ==
[2023-02-28] VITALS (9 sets, daily range): BP systolic 124–176; BP diastolic 76–97; PULSE 71–81; RESP 13–16; TEMP 36.1; O2SAT 97–100
[2023-02-28] MEDS: DEXAMETHASONE 10 MG/ML VIAL INJ (09:56)
[2023-02-28] MEDS: iopamidoL 15 ML VIAL 3 ML INJ (09:56)
--- NOTE | 2023-02-28 10:00 | DI.RAD.S_ITS ---
PROCEDURE: PAIN C/T INTERLAMINAR INJECT INDICATIONS: radiculopathy COMPARISON: None. FINDINGS: Fluoroscopic spot filming was performed to verify placement of spinal needles at the T1-2 level(s), as labeled on the films. Appropriate location(s) of the needle tip(s) was confirmed by injection of iodinated contrast. IMPRESSION: Fluoroscopic guidance utilized for an epidural steroid injection at T1-2. Dictated by: Olman Hernandez M.D. on 02/28/2023 at 12:28 Approved by: Olman Hernandez M.D. on 02/28/2023 at 12:29
--- NOTE | 2023-02-28 11:40 | P.PCN_ITS ---
Date/Time/Diagnoses Date of procedure: 02/28/23 Time of procedure: 10:00 Procedure Notes Physician: Kenton Fox Total Fluoroscopy time (seconds): 48 Total sedation minutes: 0 Procedure in detail & Post-procedure care: T1-2 Interlaminar Epidural Steroid Injection Indications: Shemar is presenting for treatment of cervical radiculopathy with neck and arm pain. Preoperative diagnosis: Cervical radiculopathy Postoperative diagnosis: Same Focused Examination: Ax3 Mood and affect are normal Vital Signs: VSS Consent: Following review of allergies and potential side effects/complications, including, but not necessarily limited to, infection, allergic reaction, local tissue breakdown, stroke, temporary or permanent nerve injury, paralysis, and possible , the patient indicated that they understood and agreed to proceed.? An informed consent document was signed by the patient, witnessed by a nurse and placed in the patient's chart.? Additionally, other treatment options including medications and physical therapy were reviewed with the patient. All questions were answered. Site was then marked. Anesthesia: Local Position: Prone Monitoring: NIBP, Pulse oximetry, 3 lead EKG Needle used: 18 G 3.5? Tuohy Contrast: Isovue 300-M 2 mL Injectate: Dexamethasone 10 mg followed by Normal Saline 2 mL Technique: The skin was prepped with chloraprep and then draped in a sterile fashion. Time out was performed as per protocol. Oxygen applied via NC. Skin and subcutaneous structures of the needle entry site was then infiltrated with 3 mL of lidocaine 1%. Under AP, lateral and contralateral oblique fluoroscopic control, the Tuohy needle was attempted to access the C7-T1 level. After several readjustments without success, decision was made to access the T1-2 level. Under AP, lateral and contralateral oblique fluoroscopic control, the Tuohy needle was guided into the T1-2 epidural space. The space was accessed with loss of resistance technique. Isovue 300-M was then injected and the spread was consistent with the epidural space. There was no evidence for intravascular or intrathecal uptake. After negative aspiration, the above-mentioned injectate was then slowly administered and the needle withdrawn. The patient expressed no unusual discomfort or paresthesias during the injection. Band-Aids applied to injection sites. EBL: less than 1 ml Complications: None Post Procedure: Patient was taken to the recovery and monitored. The patient was provided a Pain Log to continue to record the patient's response to the target- specific procedure prior to the patient's follow-up visit with the referring physician. Patient was stable upon discharge. Detailed post procedure instructions were provided. Patient was asked to call in the event of worsening pain, fever, weakness, numbness or bladder or bowel incontinence.
--- NOTE | 2023-03-01 12:30 | PC.NURSE ---
Post Procedure Call Patient reports 03/07 neck pain. Patient denies numbness in arms or legs. Patient states overall he feels great. Patient will follow up with Dr. Fox on 03/15. Patient denies any questions for this RN at this time.
== END 2023-02-28 10:30 | disposition home or self-care (01) ==
PROVIDERS: Family Provider Student in an Organized Health Care Education/Training Program; PCP Family Medicine; Referring Provider Anesthesiology; Visit Provider Anesthesiology
DX: M54.12 Radiculopathy, cervical region (principal)
CPT/HCPCS: 62321; J1100; J2250

== ENCOUNTER → 2023-03-07 12:51 | Outpatient (CLI) | payer OTHER, MEDICAID, SELFPAY ==
--- NOTE | 2023-03-07 12:54 | DI.RAD.S_ITS ---
PROCEDURE: XR HAND LT MIN 3V INDICATIONS: HAND PAIN TECHNIQUE: 3 views of the hand(s) acquired. COMPARISON: None. FINDINGS: Bones: No fractures or dislocations. Tiny periarticular lucencies are seen at the 3rd middle phalanx and 5th middle phalanx heads at the articular surfaces. There is asymmetric joint space loss of the 1st MCP joint rather also may be mild periarticular lucency. There is spurring at the 1st IP and 2nd and 3rd DIP joints. Carpal bones are normally aligned. Hypertrophic osteophytosis at the ulnar styloid. No suspicious bony lesions. Soft tissues: No suspicious soft tissue calcifications. IMPRESSION: 1. No acute fractures. 2. Scattered periarticular erosive changes suggests possible inflammatory arthritis. Dictated by: Nikki Mariscal M.D. on 03/07/2023 at 16:14 Approved by: Nikki Mariscal M.D. on 03/07/2023 at 16:18
== END ==
LOC: RAD 12:53
PROVIDERS: Family Provider Student in an Organized Health Care Education/Training Program; PCP Nurse Practitioner Family; Referring Provider Nurse Practitioner Family; Visit Provider Nurse Practitioner Family
DX: M79.642 Pain in left hand (principal)
CPT/HCPCS: 73130

== ENCOUNTER → 2023-12-19 09:42 | Outpatient (CLI) | payer OTHER, MEDICAID, SELFPAY ==
[2023-12-19 12:00] LABS: Alanine Aminotransferase 22 IU/L (<50); Albumin 4.3 g/dL (3.5-5.0); Albumin Globulin Ratio 1.7 (1.0-2.8); Alkaline Phosphatase 73 U/L (38-126); Aspartate Aminotransferase 32 IU/L (17-59); BUN Creatinine Ratio 20.6 (6-22); Bilirubin Total 0.6 mg/dL (0.2-1.3); Blood Urea Nitrogen 27 mg/dL (9-20); Calcium 9.5 mg/dL (8.4-10.2); Carbon Dioxide 27 mmol/L (22-32); Chloride 102 mmol/L (98-107); Cholesterol 191 mg/dL (140-199); Estimated Glomerular Filt Rate > 60 mL/min (>60); Globulin 2.6 g/dL (1.7-4.1); Glucose 108 mg/dL (80-110); HDL Cholesterol 61 mg/dL (40-60); HEMOLYSIS < 15 (0-50); LDL Cholesterol Calculated 84 mg/dL (<100); Potassium 4.7 mmol/L (3.4-5.1); Sodium 136 mmol/L (137-145); Total Protein 6.9 g/dL (6.3-8.2); Triglycerides 231 mg/dL (35-150)
[2023-12-19 12:28] LABS: Prostate Specific Antigen 1.58 ng/mL (0.10-4.00)
[2023-12-19 16:28] LABS: Hep C Virus Ab w/Reflex Quant NEGATIVE s/c (NEGATIVE)
== END ==
PROVIDERS: Family Provider Student in an Organized Health Care Education/Training Program; PCP Nurse Practitioner Family; Referring Provider Nurse Practitioner Family; Visit Provider Nurse Practitioner Family
DX: Z12.5 Encounter for screening for malignant neoplasm of prostate (principal); Z11.59 Encounter for screening for other viral diseases; E78.00 Pure hypercholesterolemia, unspecified; I10 Essential (primary) hypertension
CPT/HCPCS: 36415; 80053; 80061; 84153; 86803

== ENCOUNTER → 2024-09-01 11:45 | Outpatient (CLI) | payer OTHER, SELFPAY ==
[2024-09-01 13:28] LABS: Alanine Aminotransferase 20 IU/L (<50); Albumin 4.7 g/dL (3.5-5.0); Albumin Globulin Ratio 1.6 (1.0-2.8); Alkaline Phosphatase 61 U/L (38-126); Blood Urea Nitrogen 27 mg/dL (9-20); Calcium 10.0 mg/dL (8.4-10.2); Carbon Dioxide 29 mmol/L (22-32); Chloride 100 mmol/L (98-107); Cholesterol 211 mg/dL (140-199); Estimated Glomerular Filt Rate 55 mL/min (>60); Globulin 3.0 g/dL (1.7-4.1); Glucose 101 mg/dL (70-99); HDL Cholesterol 71 mg/dL (40-60); HEMOLYSIS < 15 (0-50); Potassium 4.9 mmol/L (3.4-5.1); Sodium 137 mmol/L (137-145); Total Protein 7.7 g/dL (6.3-8.2); Triglycerides 263 mg/dL (35-150)
== END ==
PROVIDERS: PCP Family Medicine; Referring Provider Family Medicine; Visit Provider Family Medicine
DX: E78.5 Hyperlipidemia, unspecified (principal); I25.10 Atherosclerotic heart disease of native coronary artery without angina pectoris
CPT/HCPCS: 36415; 80053; 80061

== ENCOUNTER → 2024-10-02 10:50 | Outpatient (CLI) | payer OTHER, SELFPAY ==
--- NOTE | 2024-10-02 10:52 | EKG_ITS ---
[address] [address] Test Date: 2024-10-02 Pat Name: Kenton Fowler Department: [facility] Room: Gender: Male Intelligence Chief: PJ : 1960 Requested By: Order Number: [id number] Reading MD: Markel Hodges Measurements Intervals [place] Rate: 54 P: 63 PA: 228 QRS: 31 QRSD: 90 T: 50 QT: 416 QTc: 394 Interpretive Statements Sinus bradycardia with 1st degree AV block Electronically Signed On 10-03-2024 8:38:37 PDT by Markel Hodges
[2024-10-02 11:16] LABS: Add Manual Diff / Slide Review NO; Hematocrit 41.4 % (41-53); Hemoglobin 14.2 g/dL (13.5-17.5); Lymphocytes Absolute Auto 1500 /uL (1100-4500); Mean Corpuscular HGB Conc 34.3 % (30-36); Mean Corpuscular Hemoglobin 31.5 PG (26-34); Mean Corpuscular Volume 91.8 fL (80-100); Platelet Count 214 X10^3/uL (150-400)
[2024-10-02 11:48] LABS: Alanine Aminotransferase 21 IU/L (<50); Albumin 4.9 g/dL (3.5-5.0); Albumin Globulin Ratio 1.8 (1.0-2.8); Alkaline Phosphatase 52 U/L (38-126); Blood Urea Nitrogen 29 mg/dL (9-20); Calcium 10.1 mg/dL (8.4-10.2); Carbon Dioxide 27 mmol/L (22-32); Chloride 101 mmol/L (98-107); Cholesterol 235 mg/dL (140-199); Estimated Glomerular Filt Rate 50 mL/min (>60); Globulin 2.8 g/dL (1.7-4.1); Glucose 106 mg/dL (70-99); HDL Cholesterol 73 mg/dL (40-60); HEMOLYSIS < 15 (0-50); Potassium 4.5 mmol/L (3.4-5.1); Sodium 139 mmol/L (137-145); Total Protein 7.7 g/dL (6.3-8.2); Triglycerides 213 mg/dL (35-150)
[2024-10-02 11:58] LABS: Hemoglobin A1C% w Est Avg Glu 6.3 % (4.0-6.0)
== END ==
PROVIDERS: PCP Family Medicine; Referring Provider Family Medicine; Visit Provider Family Medicine
DX: Z01.818 Encounter for other preprocedural examination (principal); E78.00 Pure hypercholesterolemia, unspecified; I10 Essential (primary) hypertension
CPT/HCPCS: 36415; 80053; 80061; 83036; 85025; 93005

== ENCOUNTER → 2025-02-20 11:04 | Outpatient (CLI) | payer OTHER, SELFPAY ==
--- NOTE | 2025-02-20 11:06 | DI.RAD.S_ITS ---
PROCEDURE: XR FOOT RT MIN 3V INDICATIONS: right foot pain, surgical hardware in foot > 30yrs ago TECHNIQUE: 3 views of the foot were acquired. COMPARISON: None. FINDINGS: Bones: No fractures or dislocations. No suspicious bony lesions. Moderate degenerative changes of the midfoot, with joint space narrowing and bulky osteophytosis. Subchondral cystic changes noted at the talonavicular joint space. Screw fixation of the distal tibia. Soft tissues: No tibiotalar joint effusion. Achilles tendon appears normal. IMPRESSION: Moderate midfoot osteoarthritis. Dictated by: Olman Hernandez M.D. on 02/21/2025 at 14:50 Approved by: Olman Hernandez M.D. on 02/21/2025 at 14:51
== END ==
LOC: RAD 11:05
PROVIDERS: PCP Family Medicine; Referring Provider Family Medicine; Visit Provider Family Medicine
DX: M19.071 Primary osteoarthritis, right ankle and foot (principal); M79.671 Pain in right foot; Z96.7 Presence of other bone and tendon implants
CPT/HCPCS: 73630